=== PATIENT | female | born 1995 | race Caucasian/White ===

== ENCOUNTER 2020-06-08 15:02 | Emergency (ER) | payer MEDICAID ==
[~2020-06-08] VITALS: Ht 160 cm; Wt 74.8 kg
--- NOTE | 2020-06-08 15:25 | NUR ---
Patient came in to the er c/o nausea vomiting and headache since yesterday 4/10 pain scale. On room air, breathing evenly and unlabored. connected to the monitor and pulse ox kept comfortable will continue to monitor accordingly.
--- NOTE | 2020-06-08 15:39 | NUR ---
urine collected and sent to lab
[2020-06-08] MEDS ORDERED: METOCLOPRAMIDE HCL 10 MG/2 ML VIAL IV ONE (16:00)
[2020-06-08] MEDS ORDERED: KETOROLAC TROMETHAMINE INJ 60 MG/2 ML VIAL IM ONE (16:00)
[2020-06-08] MEDS ORDERED: METOCLOPRAMIDE HCL 10 MG/2 ML VIAL ONE (16:37)
[2020-06-08] MEDS ORDERED: KETOROLAC TROMETHAMINE INJ 30 MG/ML VIAL ONE (16:37)
[2020-06-08] MEDS ORDERED: diphenhydrAMINE HCL 50 MG/ML VIAL IV ONE (17:00)
[2020-06-08] MEDS ORDERED: diphenhydrAMINE HCL 50 MG/ML VIAL ONE (17:03)
[2020-06-08 17:18] VITALS: BP 118/66
--- NOTE | 2020-06-08 17:18 | NUR ---
Patient discharged to home in stable condition. Written and verbal after care instructions given. Patient verbalizes understanding of instruction.IV removed. Catheter intact and site benign. Pressure and 4x4 applied to site. No bleeding noted.
== END 2020-06-08 17:18 | disposition home or self-care (01) ==
LOC: ER 15:09
DX: G43.909 Migraine, unspecified, not intractable, without status migrainosus (principal); R11.0 Nausea
CPT/HCPCS: 84703; 96374; 96375; 99284; J1200; J1885; J2765; J7030